=== PATIENT | male | born 1975 | race Caucasian/White ===

== ENCOUNTER 2022-09-02 12:19 | Emergency (ER) | payer OTHER, SELFPAY ==
[2022-09-02 13:02] VITALS: BP 126/73; PULSE 88; RESP 15; TEMP 36.2; O2SAT 96; BMI 31.6
--- NOTE | 2022-09-02 13:04 | DI.RAD.S_ITS ---
PROCEDURE: XR KNEE RT 3V INDICATIONS: fall last night,knee and ankle pain TECHNIQUE: 3 views of the knee were acquired. COMPARISON: None. FINDINGS: Bones: No acute fractures or dislocations. No suspicious bony lesions. Postsurgical changes from probable prior anterior cruciate ligament reconstruction. Small ossification anterior to the tibial tuberosity may be the sequela of prior [place]-Schlatter syndrome. Soft tissues: Small joint effusion. No suspicious soft tissue calcifications. IMPRESSION: 1. Postsurgical changes from prior anterior cruciate ligament reconstruction. 2. Small joint effusion. 3. No acute osseous abnormality. If clinical suspicion and/or symptoms persist, additional imaging with repeat plain films, or advanced imaging (e.g. CT, MRI) may be helpful for further assessment. Approved by: Selvin Figueroa M.D. on 09/02/2022 at 13:43
--- NOTE | 2022-09-02 13:04 | DI.RAD.S_ITS ---
PROCEDURE: XR ANKLE RT MIN 3V INDICATIONS: fall last night, knee and ankle pain TECHNIQUE: 3 views of the ankle were acquired. COMPARISON: None. FINDINGS: Bones: Fracture at the tip of the medial malleolus. Minimal displacement. Small ossicle adjacent to the calcaneus at the medial malleolus. The medial aspect of the tibiotalar joint appears widened. No suspicious bony lesions. Small plantar calcaneal spur. Soft tissues: No tibiotalar joint effusion. Achilles tendon appears normal. IMPRESSION: Fracture at the tip of the medial malleolus. Additional small avulsion fracture at the calcaneus suspected. Swelling at the medial malleolus. The tibiotalar joint appears widened at the medial aspect. Dictated by: Jose Underwood M.D. on 09/02/2022 at 13:35 Approved by: Jose Underwood M.D. on 09/02/2022 at 13:39
--- NOTE | 2022-09-02 14:06 | ED_ITS ---
HPI - Fall <Bisi Cheek PA-C - Last Filed: 09/02/22 17:34> General Chief Complaint: Fall Stated Complaint: R ankle/ knee pain after fall last night Time Seen by Provider: 09/02/22 14:03 Source: patient Mode of arrival: Ambulatory History of Present Illness HPI Narrative: 46-year-old male presents with concern for ankle and knee pain and inability to walk since he fell yesterday in snow. Patient states that he was coming down some steps and he was pretty much at the bottom of the steps when he lost his footing on some icy snow and went down says his knee went 1 direction in his ankle went the other direction. He feels he is able to bend his knee and move it fairly normally but notes that his ankle is very swollen painful and he has not been able to bear weight on it. Denies numbness or tingling, hitting his head, neck injury, loss of consciousness or any other symptoms or injuries. He does state that he previously had an ACL repair of his right knee. Related Data Allergies Allergy/AdvReac Type Severity Reaction Status Date / Time No Known Drug Allergies Allergy Verified 09/02/22 13:02 Review of Systems <Bisi Cheek PA-C - Last Filed: 09/02/22 17:34> Review of Systems Narrative: Unremarkable except as noted in the HPI Patient History <Bisi Cheek PA-C - Last Filed: 09/02/22 17:34> Social History Smoking Status: Unknown if ever smoked Smoking Status: Unknown if ever smoked alcohol intake frequency: holidays/special occasions only Substance Use Type: marijuana Exam <Bisi Cheek PA-C - Last Filed: 09/02/22 17:34> Narrative Exam Narrative: GENERAL: 46 year old patient appears stated age. Well-developed patient, in mild distress. HEAD: Atraumatic. Normocephalic. EYES: Pupils equal round and reactive. Extraocular motions intact. No scleral icterus. No injection or drainage. ENT: Nose without bleeding, purulent drainage. Airway patent. NECK: Trachea midline. Non tender CARDIOVASCULAR: Regular rate and rhythm without murmurs, gallops, or rubs. RESPIRATORY: Clear to auscultation. Breath sounds equal bilaterally. No wheezes, rales, or rhonchi. GASTROINTESTINAL: Abdomen soft, non-tender, nondistended. EXTREMITIES: There is slight tenderness over the lateral joint line of the right knee. Otherwise the knee is nontender with normoactive range of motion. The right ankle has significant swelling bilaterally with tenderness over the right and left malleoli. Patient is unable to move the ankle due to pain, swelling. Is able to wiggle his toes and does have intact sensation. There is purplish blue swelling most prominent over the medial malleolus. No edema or joint tenderness. NEURO: AOx3. SKIN: No rash or erythema of visible areas Initial Vital Signs Initial Vital Signs: Vital Signs Temperature 97.2 F L 09/02/22 13:02 Pulse Rate 88 09/02/22 13:02 Respiratory Rate 15 09/02/22 13:02 Blood Pressure 126/73 09/02/22 13:02 Pulse Oximetry 96 09/02/22 13:02 Oxygen Delivery Method 09/02/22 13:02 <Anamaria Portillo DO - Last Filed: 09/08/22 19:00> Initial Vital Signs Initial Vital Signs: Vital Signs Temperature 97.2 F L 09/02/22 13:02 Pulse Rate 88 09/02/22 13:02 Respiratory Rate 15 09/02/22 13:02 Blood Pressure 126/73 09/02/22 13:02 Pulse Oximetry 96 09/02/22 13:02 Oxygen Delivery Method 09/02/22 13:02 Procedures <Bisi Cheek PA-C - Last Filed: 09/02/22 17:34> Orthopedic Splinting/Casting Injury #1: Time of procedure: 15:05 Lower Extremity Injury Location: ankle Lower Extremity Immobilizer: posterior splint and stirrup splint Other Orthopedic Equipment: crutches Post splinting neuro exam: no change Post splinting vascular exam: intact Placed by: Nursing (Assisted and reassessed by provider) Additional Comments: Tolerated well. Course <Bisi Cheek PA-C - Last Filed: 09/02/22 17:34> Orders Ordered: ED Orders 09/02/22 13:04 XR ankle RT min 3V Stat XR knee RT 3V Stat Consultations Consultation #1: Consult with Dr. Coles on-call orthopedic surgeon about this patient. Does feel it is appropriate to splint with sugar-tong and posterior slab and have the patient be nonweightbearing. He would like to have him follow-up in the next 1-2 weeks. 14:45 Vital Signs Vital signs: Vital Signs - 8 hr 09/02/22 13:02 Temperature 97.2 F L Pulse Rate 88 Respiratory Rate 15 Blood Pressure 126/73 Pulse Oximetry 96 Oxygen Delivery Method Room Air <Anamaria Portillo DO - Last Filed: 09/08/22 19:00> Orders Ordered: ED Orders 09/02/22 13:04 XR ankle RT min 3V Stat XR knee RT 3V Stat Vital Signs Vital signs: Vital Signs - 8 hr 09/02/22 13:02 Temperature 97.2 F L Pulse Rate 88 Respiratory Rate 15 Blood Pressure 126/73 Pulse Oximetry 96 Oxygen Delivery Method Room Air MDM - Fall <Bisi Cheek PA-C - Last Filed: 09/02/22 17:34> Differential Diagnosis Differential diagnosis: Likely other (Knee sprain, strain, ankle sprain, strain, fracture, fall) Imaging Data Extremity x-ray #1: Radiologist's Impression: [address] [address] XRay Report Signed Patient: Stef Joseph MR#: [id number] : 1975 Acct:[id number] Age/Sex: 46 / M Date of Service: 09/02/22 Loc: ED Accession Number: [id number] ?? Procedure: XR knee RT 3V Ordering Provider: Anamaria Portillo D.O. PROCEDURE:? XR KNEE RT 3V ? INDICATIONS:? fall last night,knee and ankle pain ? TECHNIQUE:? 3 views of the knee were acquired.? ? COMPARISON:? None. ? FINDINGS:? ? Bones:? No acute fractures or dislocations.? No suspicious bony lesions.? Postsurgical changes from probable prior anterior cruciate ligament reconstruction.? Small ossification anterior to the tibial tuberosity may be the sequela of prior [place]-Schlatter syndrome. ? Soft tissues:? Small joint effusion.? No suspicious soft tissue calcifications.? ? ? IMPRESSION:? 1.? Postsurgical changes from prior anterior cruciate ligament reconstruction. 2.? Small joint effusion.? 3.? No acute osseous abnormality.? If clinical suspicion and/or symptoms persist, additional imaging with repeat plain films, or advanced imaging (e.g. CT, MRI) may be helpful for further assessment. ? ? ? Approved by: Selvin Figueroa M.D. on 09/02/2022 at 13:43? Extremity x-ray #2: Radiologist's Impression: [address] [address] XRay Report Signed Patient: Stef Joseph MR#: [id number] : 1975 Acct:[id number] Age/Sex: 46 / M Date of Service: 09/02/22 Loc: ED Accession Number: [id number] ?? Procedure: XR ankle RT min 3V Ordering Provider: Anamaria Portillo D.O. PROCEDURE:? XR ANKLE RT MIN 3V ? INDICATIONS:? fall last night, knee and ankle pain ? TECHNIQUE:? 3 views of the ankle were acquired.? ? COMPARISON:? None. ? FINDINGS:? ? Bones:? Fracture at the tip of the medial malleolus.? Minimal displacement.? Small ossicle adjacent to the calcaneus at the medial malleolus.? The medial aspect of the tibiotalar joint appears widened.? No suspicious bony lesions.? Small plantar calcaneal spur.? ? Soft tissues:? No tibiotalar joint effusion.? Achilles tendon appears normal.? ? ? IMPRESSION:? Fracture at the tip of the medial malleolus.? Additional small avulsion fracture at the calcaneus suspected.? Swelling at the medial malleolus. ? The tibiotalar joint appears widened at the medial aspect. ? ? Dictated by: Jose Underwood M.D. on 09/02/2022 at 13:35 ? ? Approved by: Jose Underwood M.D. on 09/02/2022 at 13:39?? MDM Narrative Medical decision making narrative: This is a 46-year-old male who had a fall yesterday from standing due to icy snow conditions. Has not borne weight on the affected right lower extremity since this occurred. Walking with 1 crutch today upon presentation. Some knee pain over the medial joint line however normal active range of motion and x-rays today negative. Previous ACL injury and repair. More notably patient does have significant swelling and tenderness with reduced range of motion at the ankle as well as a fracture of his distal medial malleolus at the tip. Orthopedics consulted for further evaluation. Patient is splinted today in the emergency department. Recommend RICE Advised elevation, staying off of the foot entirely, close follow-up with Orthopedics. Return precautions provided, follow-up plan discussed, all questions answered. Discharge Plan Departure Patient Disposition: Home Clinical Impression: Sprain and strain of right ankle Fracture of ankle, medial malleolus, closed Qualifiers: Encounter type: initial encounter Fracture alignment: displaced Laterality: right Qualified Code(s): S82.51XA - Displaced fracture of medial malleolus of right tibia, initial encounter for closed fracture Instructions: DI for Ankle Fracture, How To Perform RICE (Rest, Ice, Compress, Elevate) Activity Restrictions/Additional Instructions: Thank you for letting us be part of your care in the emergency department today. I think that you over stretched her knee today but you do have good range of motion there and not placing you in a brace, however your ankle is significantly swollen and I suspect you have a sprain and strain as well as the fracture of your medial malleolus which is kind of a chip off of the bottom of this bone. We placed do in a supportive splint and provided with crutches today after consulting the orthopedic provider. You will need to follow-up with Orthopedics, this is not necessarily a surgical fracture however you do need to see them in clinic for follow-up and re-evaluation. You will likely be placed in a cast. We discussed options for pain control and you were comfortable with Tylenol ibuprofen. As discussed it will be very important for you to keep your leg elevated as much as possible. You also need to be NON WEIGHT BEARING. There is no evidence of an emergent or life threatening illness at this time, but follow up with your doctor in 1-2 days is recommended nonetheless to continue to rule out serious underlying causes of your symptoms. Please call the office for an appointment. Please return to the Emergency Department for any worsening or persistent symptoms. Please take medications as directed. Referrals: Kashmir Coles MD [Physician] - 5-7 days (Medial malleolus fracture) Visit Report Forms: Patient Portal/API <Anamaria Portillo DO - Last Filed: 09/08/22 19:00> Cosign ED Attending Coshomerature Attestation: I was immediately available in the department for consultation. Documentation has been reviewed.
== END 2022-09-02 16:07 | disposition home or self-care (01) ==
PROVIDERS: Emergency Provider Student in an Organized Health Care Education/Training Program
DX: S82.51XA Displaced fracture of medial malleolus of right tibia, initial encounter for closed fracture (principal); S93.401A Sprain of unspecified ligament of right ankle, initial encounter; S96.911A Strain of unspecified muscle and tendon at ankle and foot level, right foot, initial encounter; M25.561 Pain in right knee; W00.0XXA Fall on same level due to ice and snow, initial encounter
CPT/HCPCS: 29515; 73562; 73610; 99283